=== PATIENT | male | born 1970 | race Caucasian/White ===

== ENCOUNTER 2018-01-13 11:57 | Emergency (ER) | payer SELFPAY ==
[~2018-01-13 11:57] MED LIST: IBUP600T26 PO
[2018-01-13 12:11] VITALS: BP 129/73; PULSE 95; RESP 14; TEMP 98.3; O2SAT 96
--- NOTE | 2018-01-13 12:43 | RADRPT ---
EXAM DATE/TIME: 01/13/2018 12:26 [place] COMPARISON: No previous studies available for comparison. INDICATIONS : Left wrist pain, fall. MEDICAL HISTORY : None. SURGICAL HISTORY : None. ENCOUNTER: Initial ACUITY: 1 day PAIN SCORE: 10/10 LOCATION: Left medial wrist FINDINGS: Three view examination of the left wrist demonstrates bony fragments posteriorly. Soft tissue swellin g. Old fracture distal ulna.. Bony mineralization is normal. CONCLUSION: Bony fragments posteriorly could be fracture the pisiform. Jacek Palomino MD on January 13, 2018 at 12:40 Board Certified Radiologist. This report was verified electronically.
--- NOTE | 2018-01-13 13:26 | PD ---
HPI Chief Complaint: Injury Time Seen by Provider: 13:17 Travel History International Travel<30 days: No Contact w/Intl Traveler<30days: No Traveled to known affect area: No History of Present Illness HPI 47-year-old male here with left wrist pain. He reports that yesterday he tripped and fell, falling on his outstretched hand. Since that he has had pain and limited range of motion of the left wrist. Pain is throbbing and constant and worse with movement. He denies any head injury. He denies any neck or back pain. He has no other complaints at this time. [facility] Past Medical History Arthritis: No Asthma: No Autoimmune Disease: No Blood Disorders: No Heart Rhythm Problems: No Cancer: No Cardiovascular Problems: No High Cholesterol: No Chemotherapy: No Chest Pain: No Congestive Heart Failure: No COPD: No Cerebrovascular Accident: No Diabetes: No Diminished Hearing: No Endocrine: No GERD: No Genitourinary: No Headaches: No Hiatal Hernia: No Hypertension: No Immune Disorder: No Kidney Stones: No Musculoskeletal: No Neurologic: No Psychiatric: No Respiratory: No Myocardial Infarction: No Radiation Therapy: No Renal Failure: No Seizures: No Sickle Cell Disease: No Sleep Apnea: No Thyroid Disease: No Ulcer: No Past Surgical History AICD: No Genitourinary Surgery: No Joint Replacement: No Pacemaker: No Other Surgery: No Social History Alcohol Use: Yes (6 PPD) Tobacco Use: Yes (1PD) Substance Use: No Allergies-Medications (Allergen,Severity, Reaction): Coded Allergies: No Known Allergies (Verified , NO, 02/06/16) Reported Meds & Prescriptions Reported Meds & Active Scripts Active Review of Systems General / Constitutional: No: Fever, Chills Musculoskeletal: Positive: Limited ROM, Pain Skin: Positive Other (denies open wounds) Neurologic: No: Syncope, Headache Physical Exam Narrative GENERAL: Well-nourished male in no acute distress SKIN: Warm and dry. HEAD: Atraumatic. Normocephalic. EYES: Pupils equal and round. No scleral icterus. No injection or drainage. CARDIOVASCULAR: Regular rate and rhythm. No murmur appreciated. RESPIRATORY: No accessory muscle use. Clear to auscultation. Breath sounds equal bilaterally. GASTROINTESTINAL: Abdomen soft, non-tender, nondistended. MUSCULOSKELETAL: Generalized tenderness to palpation to the left wrist. The patient has limited supination, pronation, flexion, extension of the left wrist. 2+ radial pulse. Capillary refill less than 2 seconds all digits left hand. NEUROLOGICAL: Awake and alert. No obvious cranial nerve deficits. Motor grossly within normal limits. Normal speech. Data Data Last Documented VS Vital Signs Date Time Temp Pulse Resp B/P (MAP) Pulse Ox O2 Delivery O2 Flow Rate FiO2 01/13/18 12:11 98.3 95 14 129/73 (91) 96 Orders Orders Wrist, Complete ([id number]) (01/13/18 ) Splint Or Brace Apply/Monitor (01/13/18 13:22) Mandatory Outpatient Referral (01/13/18 13:22) Ed Discharge Order (01/13/18 13:22) [facility] Medical Decision Making Medical Screen Exam Complete: Yes Emergency Medical Condition: Yes Medical Record Reviewed: Yes Differential Diagnosis Wrist fracture, sprain, dislocation Narrative Course X-ray imaging reveals CONCLUSION: Bony fragments posteriorly could be fracture the pisiform. The patient will be placed in a sugar tong splint. A mandatory outpatient referral for hand specialty follow-up has been ordered. I discussed this with the patient in great detail and he verbalizes understanding. He is stable for discharge. The patient now reports that he does not have a cell phone number. Therefore I spoke with the upper caser who would like the patient to call [phone] and ask for upper caser Minda Wade next Saturday. These instructions were discussed with the patient at great detail. He is stable for discharge. Diagnosis Primary Impression: Closed fracture pisiform Referrals: Hand Surgeon Additional Instructions: Do not remove the splint. Ice to the affected area several times a day 20 minutes at a time. Follow-up with a hand specialist in the next week, our upper caser will call to help facilitate appointment. Return for any emergent medical conditions. Med/Other Pt SpecificInfo: Orthopedic Instructions Disposition: 01 DISCHARGE HOME Condition: Stable Florentino Isidro Jan 13, 2018 13:26
== END 2018-01-13 14:09 | disposition home or self-care (01) ==
LOC: NEPK 11:57
DX: S62.162A Displaced fracture of pisiform, left wrist, initial encounter for closed fracture (principal); F17.210 Nicotine dependence, cigarettes, uncomplicated; W01.0XXA Fall on same level from slipping, tripping and stumbling without subsequent striking against object, initial encounter
CPT/HCPCS: 29125; 73110